=== PATIENT | female | born 1990 | race Caucasian/White ===

== ENCOUNTER 2018-06-25 09:05 | Emergency (ER) | payer MEDICAID, OTHER ==
[2018-06-25] MEDS ORDERED: Ibuprofen 600 MG TAB ONE (09:57)
== END 2018-06-25 10:04 | disposition home or self-care (01) ==
LOC: MADERS 09:05
DX: J02.0 Streptococcal pharyngitis (principal)
CPT/HCPCS: 87430; 99283

== ENCOUNTER 2022-10-06 19:56 | Emergency (ER) | payer SELFPAY | END 2022-10-06 20:33 | disposition home or self-care (01) | LOC: MADERS 19:56 | DX: J04.0 Acute laryngitis (principal); J30.9 Allergic rhinitis, unspecified | CPT/HCPCS: 99283 ==